=== PATIENT | female | born 1970 ===

== ENCOUNTER → 2017-07-02 | Outpatient (CLI) | payer BC ==
--- NOTE | 2017-07-02 08:07 | MR ---
EXAMINATION TYPE: MR lumbar spine wo con DATE OF EXAM: 07/02/2017 COMPARISON: NONE HISTORY: Low back pain per order. Back pain into right hip for 2 years per patient. TECHNIQUE: Multiplanar, multisequence imaging of the lumbar spine is performed without IV contrast. FINDINGS: Survey images show S-shaped scoliosis levoconvex in curvature in the upper lumbar spine. Sa gittal images of the lumbar spine show vertebral body heights to appear satisfactory. Multilevel disc desiccation is seen. There is mild disc space narrowing L5-S1 level. No prominent posterior disc her niations are seen on sagittal images. The conus medullaris is normal in position and signal ending at mid L1 level. The bone marrow signal intensity is within normal limits. No significant spurring is seen. Axial images show the T12-L1, L1-L2, L2-L3, and L3-L4 levels all to appear within normal limits. Axial images at the L4-L5 level show mild facet degenerative changes and ligamentum flavum hypertroph y mildly effacing the posterior lateral thecal sac. There is mild broad disc bulge with central disc protrusion mildly effacing anterior thecal sac. There is mild to moderate right-sided anterior inferi or neural foraminal narrowing. Encroachment towards right L4 nerve is seen best sagittal image 12. Le ft-sided neural foramen is patent. Axial images at L5-S1 level show mild facet degenerative changes bilaterally. There is broad disc bul ge with more prominent left lateral disc protrusion component. Spinal canal is preserved. Bilateral n eural foramina are patent. No suspicious retroperitoneal findings are seen. IMPRESSION: Underlying scoliosis with multilevel degenerative changes most prominent in the lower lum bar spine. Disc herniation encroaches towards right L4 nerve at L4-L5 level. Further details as noted above.
== END | disposition home or self-care (01) ==
LOC: RADMRIMAIN 06:14
PROVIDERS: ATTEND Psychiatry & Neurology Neurology
DX: M47.816 Spondylosis without myelopathy or radiculopathy, lumbar region (principal); M51.26 Other intervertebral disc displacement, lumbar region; M41.9 Scoliosis, unspecified
CPT/HCPCS: 72148

== ENCOUNTER → 2018-10-02 | Outpatient (CLI) | payer BC ==
[2018-10-02 10:44] VITALS: BP 130/81; PULSE 91; RESP 16
--- NOTE | 2018-10-02 11:19 | P.PAINCN ---
History of Present Illness - Reason for Consult Consult date: 10/02/18 - History of Present Illness This is the initial consultation visit for this 48 years old female with a chronic history of severe neck pain with radiation to the upper extremity associated with numbness and tingling sensation, she reported that her symptoms started more than 5 years ago, and is more severe on the left side, also patient she is complaining of some low back pain, her pain is constant and increases with any activity and increases at nighttime, and intensity of the pain interferes with her quality of life and her ability to function or sleep, she feels occasional weakness in the upper extremity, she denies any fever or night sweats she denies any change in the bowel movement or urination, she is currently on pain medication naproxen [place] and Flexeril which is helping to control her pain she denies any side effect of the medication Past Medical History Past Medical History: Hyperlipidemia, Musculoskeletal Disorder Additional Past Medical History / Comment(s): CERVICAL SPINE PAIN, NT KRISTAN ARMS FROM ELBOW DOWN. History of Any Multi-Drug Resistant Organisms: None Reported Past Surgical History: Tubal Ligation Additional Past Surgical History / Comment(s): PAIN INJECTIONS, EPIDURAL NECK. Past Anesthesia/Blood Transfusion Reactions: Motion Sickness Past Psychological History: ADD/ADHD Smoking Status: Former smoker Past Alcohol Use History: None Reported Additional Past Alcohol Use History / Comment(s): SMOKED 26 YEARS, 2-3 PPD, QUIT 2015 Past Drug Use History: Marijuana Additional Drug Use History / Comment(s): DAILY USE - Past Family History Mother Family Medical History: Hypertension Medications and Allergies Home Medications Medication Instructions Recorded Confirmed Type Cyclobenzaprine [Flexeril] 10 mg PO TID PRN 09/29/18 10/02/18 History HYDROcodone/APAP 7.5-325MG [[place] 1 tab PO BID PRN 09/29/18 10/02/18 History 7.5-325] Rosuvastatin [Crestor] 20 mg PO DAILY 09/29/18 10/02/18 History Amphetamine Salts 20 mg PO BID 10/02/18 10/02/18 History Naproxen 500 mg PO BID PRN 10/02/18 10/02/18 History Allergies Allergy/AdvReac Type Severity Reaction Status Date / Time No Known Allergies Allergy Verified 10/02/18 10:15 Physical Exam Vitals: Vital Signs Pulse Resp BP 10/02/18 10:31 91 16 130/81 Social history : not smoker , NO ETOH , NO Illegal drugs use . Review of Systems : - Constitutional : no chills , no fever , no night sweats , - Ears : no ear discharge , no change in hearing -Nose, Mouth ,Throat ; no bleeding gums, no sore throat , no epistaxis , -Cardiovascular : Denies chest pain, , no orthopnea , no palpitation -Respiratory : Denies cough , no dyspnea , no hemoptysis -Gastrointestinal : no change in bowel habits , no coffee-ground emesis . -Genitourinary : No hematuria , no discharge , no incontinence, -Musculoskeletal : No gait dysfunction , report neck pain and low back pain , - Neurological : no ataxia , no tremor , no sezure , -Psychatric : no suicidal ideation no hallucination - Endocrine : no cold intolerence , no polyuria , no polydypsia , -Hematologic : no easy bleeding , no easy brusing , -Allergic / immm : no angioedema , no wheezing ,no allergic rhinitis -Integumentary : no brttle nails , no change hair / nails , no foot/leg ulcers . Physical Examinations : -Constitutional : Cooperative , not in acute distress . -HEENT : nech ; supple , no Lymphadenopathy , no Thyromegaly , :eyes : no icterus, no photophobia . : ENT normal oropharynx , no Thrush - Respiratory : Chest clear to auscultations Bilaterally , no wheezing . - Cardiovascular : regular rate and rhythem , S1 , S2 , no S3 , no S4. - Gastrointestina l: abdomen soft no tenderness , no organomegally . - Genitourinary : Defferred . -Integumentary : No cellulitis , no ulcers , normal skin turgor , no cyanotic . - neurologic : Cranial nerve II to XII intact , no focal neurological deffecit -psychatric : alert , oriented X 3 , appropriate affect , intact judgment and insight . -Lymphatic : no Lymphadenopathy. - musculoskeltal: normal gait Cervical Spine motor stregnth in the deltoid and biceps, 5/5 right side , 4/5 Left side motor stregnth biceps and the wrist extensors 5/5right side ,4/5 left side . motor stregnth in the triceps muscle . normal Right side , normal Left side deep tendon reflexes normal at the biceps , normal at Brachioradialis , normal at triceps. Spurling test = positive Neck distraction test= positive Khoury sign= positive positive cervical facet loading test . Lumber spine moter stegnth lower extremities ,thigh and legs 5/5 Right side , 5/5 Left side lly Results Comments: MRI of the cervical spine done 09/05/2018 showed C4 5 disc bulging C5 6 disc bulging and facet hypertrophy C6 7 disc bulging and facet hypertrophic MRI of the lumbar spine done more thousand 18 =showed L4 5 and L5-S1 lumbar spondylosis with facet arthropathy Assessment and Plan Plan: Assessment and plan= cervical radiculopathy Cervical spondylosis with cervical facet arthropathy. Lumbar spondylosis. Patient reported that most of the symptoms currently in the cervical area, patient could benefit from cervical epidural steroid injection at C7-T1, x2 , procedure risk and benefits discussed with the patient and she agreed with the preceding. Patient should continue her current medication Jupiter/naproxen/flexors she is getting prescription refills from her primary care Time with Patient: Greater than 30 PQRS Measure Charge Sheet Measure #130: Documentation of Current Meds in Medical Chart: Patient's medications documented in chart Measure #226: Tobacco Use: Screen & Cessation Intervention: Pt not a tobacco user Measure #111: Pneumonia Vaccination: Pneumococcal vaccine NOT administered or previously given Measure #47: Advance Care Plan: Advance care planning discussed & documented, pt chose/unable to give Measure #412: Opioid Treatment Agreement: No documentation of signed opioid treatment agreement Measure #408: Opioid Therapy Follow-up Evaluation: Patient had NO f/u eval minimum every 3 months during opioid therapy Measure #317: Preventitive Care & Scrn High Bld Press & F/U: Normal blood pressure, f/u not required Measure #128: Body Mass Index (BMI) Screening & Follow-up: BMI documented within normal parameters Measure #131: Pain Assessment & Follow-up: Pain positive & plan documented, Follow-up scheduled Measure #431: Unhealthy Alcohol Use Preventative Care & Scrn: Patient not identified as an unhealthy alcohol user PQRS Narrative: Smoking Status Former smoker Blood Pressure 130/81 Pain Intensity [Neck] 8 Scale Used Numeric (1 - 10) Hx Alcohol Use (MH) No Home Medications: Ambulatory Orders Cyclobenzaprine [Flexeril] 10 mg PO TID PRN 09/29/18 HYDROcodone/APAP 7.5-325MG [Jupiter 7.5-325] 1 tab PO BID PRN 09/29/18 Rosuvastatin [Crestor] 20 mg PO DAILY 09/29/18 Amphetamine Salts 20 mg PO BID 10/02/18 Naproxen 500 mg PO BID PRN 10/02/18
== END | disposition home or self-care (01) ==
LOC: PNWHC3 10:07
PROVIDERS: ATTEND Specialist
DX: G89.29 Other chronic pain (principal); M47.22 Other spondylosis with radiculopathy, cervical region; M47.816 Spondylosis without myelopathy or radiculopathy, lumbar region; M46.92 Unspecified inflammatory spondylopathy, cervical region; E78.5 Hyperlipidemia, unspecified; Z87.891 Personal history of nicotine dependence; Z79.899 Other long term (current) drug therapy
CPT/HCPCS: 99211

== ENCOUNTER 2018-10-14 09:35 | Day surgery (SDC) | payer BC ==
[2018-10-07 15:51] VITALS: BMI 22.3
[~2018-10-14 09:35] MED LIST: LACTATED RINGERS 1,000 ML IV SCH
[2018-10-14 09:51] VITALS: TEMP 98.6
[2018-10-14] MEDS ORDERED: LIDOCAINE 1% 20 ML VIAL (10MG/ML) FOR IV START INTRADERMA ONE (10:01)
--- NOTE | 2018-10-14 10:46 | P.PCN ---
Date of Procedure: 10/14/18 Procedure(s) Performed: PROCEDURE 1. Cervical epidural steroid injection under fluoroscopic guidance, C7-T1 2. Cervical epidurogram. PREOPERATIVE DIAGNOSIS: 1- Cervical radiculopathy. 2-cervical spondylosis with cervical Facet arthropathy without myelopathy POSTOPERATIVE DIAGNOSIS: : 1- Cervical radiculopathy. 2-cervical spondylosis with cervical Facet arthropathy without myelopathy ANESTHESIA: Local anesthesia with lidocaine 1 % , and moderate sedation, with Versed 2 mg and Fentanyl 100 mcg. EBL 0 PROCEDURE INDICATION: The patient with neck pain and radiculitis unresponsive to conservative treatment consents for procedure. PROCEDURE DESCRIPTION / TECHNIQUE: The patient was seen and identified in the preoperative area. Risks, benefits, complications, including but not limited to infections ,bleeding , allergic reactions to the medications ,and not complete pain releife, and alternatives were discussed with the patient, the patient agreed to proceed with the procedure and signed the consent. Patient was taken to the OR and time out was completed. The patient was placed in the prone position on the procedure table. A pillow was placed under the patients chest to increase the cervical interlaminar space. The cervical area was prepped and draped in the usual sterile fashion. Vital signs were closely monitored during the procedure. Conscious sedation was used during the procedure to decrease patients anxiety. Using anterior-posterior fluoroscopy, the C7-T1 interlaminar space was identified and the skin over this site was marked and then infiltrated with 1% lidocaine subcutaneously. Subsequently, a 20-gauge 3-1/2-inch Tuohy epidural needle was inserted and advanced toward the epidural space by means of the ``hanging-drop technique and guided by AP and lateral fluoroscopy. The correct needle position in the epidural space was verified with the injection of 2 mL of the water soluble contrast dye Isovue-200 and observing an excellent epidurogram with the epidural spread of the dye, after negative aspiration for blood and CSF and in the absence of paresthesias. Again after negative aspiration, mixture containing 20 mg Dexamethasone and 2 ml of preservative- free normal saline injected and a washout of epidurogram was seen. Needle was withdrawn intact, skin was cleansed, and bandages were applied. Complications= none. Disposition= patient was placed in supine position and transferred to the recovery room area in stable condition and there was no evidence of upper or lower extremity motor or sensory deficit after the procedure patient was discharged from recovery room after discharge criteria met and home discharge instructions was given by the staff and patient will follow with the pain clinic in 2-4 weeks
[2018-10-14] MEDS ORDERED: IV FLUID CONTINUATION 1,000 ML IV ONE (10:57)
[2018-10-14 11:02] VITALS: BP 121/82; PULSE 70; RESP 18
--- NOTE | 2018-10-14 11:43 | FL ---
EXAMINATION TYPE: FL guided pain mgmt statistic DATE OF EXAM: 10/14/2018 HISTORY: Flouroscopy time 10 seconds of fluoroscopy provided. IMPRESSION: 1. Fluoroscopy time.
== END 2018-10-14 11:27 | disposition home or self-care (01) ==
LOC: ORPAIN 09:35
PROVIDERS: ATTEND Specialist
DX: G89.29 Other chronic pain (principal); M47.22 Other spondylosis with radiculopathy, cervical region; M47.9 Spondylosis, unspecified; Z87.891 Personal history of nicotine dependence; Z79.1 Long term (current) use of non-steroidal anti-inflammatories (NSAID); Z79.891 Long term (current) use of opiate analgesic; Z79.899 Other long term (current) drug therapy; E78.5 Hyperlipidemia, unspecified; Z98.51 Tubal ligation status; F90.9 Attention-deficit hyperactivity disorder, unspecified type
CPT/HCPCS: 81025; 62321; J2250; J1100; J3010; Q9966; 99152

== ENCOUNTER 2018-10-28 10:03 | Day surgery (SDC) | payer BC ==
[2018-10-27 10:07] VITALS: BMI 23.1
[2018-10-28 11:15] VITALS: TEMP 97.5
[2018-10-28] MEDS ORDERED: LIDOCAINE 1% 20 ML VIAL (10MG/ML) FOR IV START INTRADERMA ONE (11:15)
[2018-10-28] MEDS ORDERED: LACTATED RINGERS 1,000 ML IV ONE (11:15)
--- NOTE | 2018-10-28 12:53 | P.PCN ---
Date of Procedure: 10/28/18 Procedure(s) Performed: Diagnosis: Cervical radiculopathy Cervical degenerative disc disease POSTOPERATIVE DIAGNOSIS: Diagnoses: Cervical radiculopathy Cervical degenerative disc disease PROCEDURE Cervical Epidural steroid injection under fluoroscopic guidance at the C7-T1 interspace using left paramedian approach Cervical epidurogram ANESTHESIA: Local with 1% lidocaine 3 ml and IV sedation with Versed and fentanyl Fluoroscopy was used for the procedure and images were saved in the radiology portion of the chart. EBL: Minimal PROCEDURE INDICATION: The patient presents with cervical radicular symptoms unresponsive to conservative treatment. This is the neck and cervical epidural steroid injection. PROCEDURE DESCRIPTION / TECHNIQUE: The patient was seen and identified in the preoperative area. Risks, benefits, complications including but not limited to infections ,bleeding ,allergic reaction to the medications ,nerve damage and incomplete pain relief, and alternatives were discussed with the patient. The patient agreed to proceed with the procedure and signed the consent. IV was started, and vital signs were stable. Patient was taken to the OR and time out was completed. The patient was placed in the prone position on procedure table and a pillow was placed under the chest area. The cervical area was prepped and draped in the usual sterile fashion. Conscious sedation was used during the procedure to decrease patients anxiety. Vital signs was monitored during the entire procedure. Using anterior-posterior fluoroscopy, the C7-T1 interlaminar space was identified and the skin over this site was marked and then infiltrated with 1% lidocaine subcutaneously. Subsequently, a 20-gauge Tuohy epidural needle was inserted and advanced toward the epidural space using the loss of resistance technique and guided by AP and 50 oblique fluoroscopy. The correct needle position in the epidural space was verified. After negative aspiration for blood and CSF and in the absence of paresthesias, Isovue 200 2 mL's was injected under live fluoroscopy. Initial injection of dye revealed vascular uptake. The needle was withdrawn and readvanced in the epidural space using AP and oblique fluoroscopy. On re-injection of 2 MLS of Isovue 200 under live fluoroscopy, no vascular uptake was noted, good epidural spread O did. After negative aspiration, a 5 ml mixture containing 10 mg of dexamethasone, 3 mL of preservative free normal saline and 1 mL of 1% lidocaine was injected. Needle was withdrawn intact, skin was cleansed, and bandages were applied. COMPLICATIONS: None DISPOSITION / PLANS: The patient was placed in a supine position and transferred to the recovery area in a stable condition for observation. There was no evidence of lower extremity motor or sensory deficit after the procedure. Patient was discharged from the recovery room after meeting discharge criteria. Home discharge instructions were given to the patient by the staff. The patient will be scheduled a follow-up in the clinic in 2-4 weeks.
[2018-10-28] MEDS ORDERED: IV FLUID CONTINUATION 500 ML IV ONE (12:55)
[2018-10-28 12:59] VITALS: RESP 16
[2018-10-28 13:15] VITALS: BP 114/77; PULSE 70
--- NOTE | 2018-10-28 16:02 | FL ---
Fluoroscopy HISTORY: Pain 24 seconds fluoroscopy time supplied to the referring clinician. 4 intraoperative C-arm images docum ent the procedure. See dictated report from anesthesia.
== END 2018-10-28 13:28 | disposition home or self-care (01) ==
LOC: ORPAIN 10:03
PROVIDERS: ATTEND Anesthesiology
DX: G89.29 Other chronic pain (principal); M50.10 Cervical disc disorder with radiculopathy, unspecified cervical region; E78.5 Hyperlipidemia, unspecified; F90.9 Attention-deficit hyperactivity disorder, unspecified type; Z87.891 Personal history of nicotine dependence; Z79.1 Long term (current) use of non-steroidal anti-inflammatories (NSAID); Z79.891 Long term (current) use of opiate analgesic; Z79.899 Other long term (current) drug therapy; M47.892 Other spondylosis, cervical region; M47.896 Other spondylosis, lumbar region; M50.121 Cervical disc disorder at C4-C5 level with radiculopathy
CPT/HCPCS: 81025; 62321; J2250; J1100; Q9966; 99152

== ENCOUNTER → 2018-11-27 | Outpatient (CLI) | payer BC ==
--- NOTE | 2018-11-28 09:34 | P.PAINPG ---
Subjective Progress Note Date: 11/27/18 This is the Follow up visit for this 48 years old female with a chronic history of severe neck pain with radiation to the upper extremity associated with numbness and tingling sensation, She is Diagnosed with cervical radiculopathy ,and cervical spondylosis , we have done cervical epidural steroid injections X2 , she reporte ,that her symptomes improved , , she denies any fever or night sweats she denies any change in the bowel movement or urination, she is currently on pain medication naproxen ,[place] and Flexeril which is helping to control her pain she denies any side effect of the medication Physical Examinations : -Constitutional : Cooperative , not in acute distress . -HEENT : nech ; supple , no Lymphadenopathy , no Thyromegaly , :eyes : no icterus, no photophobia . : ENT normal oropharynx , no Thrush - Respiratory : Chest clear to auscultations Bilaterally , no wheezing . - Cardiovascular : regular rate and rhythem , S1 , S2 , no S3 , no S4. - Gastrointestina l: abdomen soft no tenderness , no organomegally . - Genitourinary : Defferred . -Integumentary : No cellulitis , no ulcers , normal skin turgor , no cyanotic . - neurologic : Cranial nerve II to XII intact , no focal neurological deffecit -psychatric : alert , oriented X 3 , appropriate affect , intact judgment and insight . -Lymphatic : no Lymphadenopathy. - musculoskeltal: normal gait Cervical Spine motor stregnth in the deltoid and biceps, 5/5 right side , 5/5 Left side MRI of the cervical spine done 09/05/2018 showed C4 5 disc bulging C5 6 disc bulging and facet hypertrophy C6 7 disc bulging and facet hypertrophic MRI of the lumbar spine done more thousand 18 =showed L4 5 and L5-S1 lumbar spondylosis with facet arthropathy Assessment and plan= cervical radiculopathy Cervical spondylosis with cervical facet arthropathy. Lumbar spondylosis. Patient reportes that her pain ,and numbness improved more than 80 % after 2 cervical epidural steroid injections she will follow up PRN she will continue to use her current pain medications as prescribed by her PCP Objective - Vital Signs Vital signs: Vital Signs Temp Pulse 76 11/27/18 11:29 Resp 16 11/27/18 11:29 BP 122/75 11/27/18 11:29 Pulse Ox 100 11/27/18 11:29 Intake & Output 11/27/18 11/28/18 11/28/18 18:59 06:59 18:59 Weight 58.06 kg PQRS Measure Charge Sheet Measure #130: Documentation of Current Meds in Medical Chart: Patient's medications documented in chart Measure #226: Tobacco Use: Screen & Cessation Intervention: Pt not a tobacco user Measure #111: Pneumonia Vaccination: Pneumococcal vaccine NOT administered or previously given Measure #47: Advance Care Plan: Advance care planning discussed & documented, pt chose/unable to give Measure #412: Opioid Treatment Agreement: No documentation of signed opioid treatment agreement Measure #408: Opioid Therapy Follow-up Evaluation: Patient had NO f/u eval minimum every 3 months during opioid therapy Measure #317: Preventitive Care & Scrn High Bld Press & F/U: Normal blood pressure, f/u not required Measure #128: Body Mass Index (BMI) Screening & Follow-up: BMI documented within normal parameters Measure #131: Pain Assessment & Follow-up: Pain positive & plan documented, Follow-up PRN Measure #431: Unhealthy Alcohol Use Preventative Care & Scrn: Patient not identified as an unhealthy alcohol user PQRS Narrative: Smoking Status Former smoker Blood Pressure 122/75 Pain Intensity [Bilateral 4 Posterior Neck] Scale Used Numeric (1 - 10) Hx Alcohol Use (MH) No Home Medications: Ambulatory Orders Cyclobenzaprine [Flexeril] 10 mg PO TID PRN 09/29/18 HYDROcodone/APAP 7.5-325MG [[place] 7.5-325] 1 tab PO BID PRN 09/29/18 Rosuvastatin [Crestor] 20 mg PO DAILY 09/29/18 Naproxen 500 mg PO DAILY PRN 10/02/18 Dextroamphetamine/Amphetamine [Adderall] 20 mg PO DAILY 10/07/18 Controlled Substance Measures - Controlled Substance Measures Is patient prescribed a controlled substance at discharge?: No
== END ==
CPT/HCPCS: 99211